=== PATIENT | male | born 1980 | race Caucasian/White ===

== ENCOUNTER 2021-12-04 09:33 | Emergency (ER) | payer OTHER, SELFPAY ==
[2021-12-04 09:38] VITALS: BMI 36.6
[2021-12-04 09:42] VITALS: BP 168/113; PULSE 94; RESP 14; TEMP 36.6; O2SAT 98
--- NOTE | 2021-12-04 09:45 | XRR_ITS ---
PROCEDURE INFORMATION: Exam: XR Chest Exam date and time: 12/04/2021 9:45 AM Age: 41 years old Clinical indication: Pain; Angina pectoris; Additional info: Cehst pain TECHNIQUE: Imaging protocol: XR of the chest. Views: 1 view. COMPARISON: MRI Shoulder w/wo LEFT [id number] 08/25/2015 1:27 PM FINDINGS: Lungs: Unremarkable. No consolidation. Pleural spaces: Unremarkable. No pleural effusion. No pneumothorax. Heart/Mediastinum: Unremarkable. No cardiomegaly. Bones/joints: Unremarkable. XR/XR chest 1V portable [id number] IMPRESSION: No acute findings.
--- NOTE | 2021-12-04 09:46 | ECG_ITS ---
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 Measurements Intervals [place] Rate: 87 P: 31 SC: 158 QRS: -55 QRSD: 102 T: 61 QT: 371 QTc: 449 Interpretive Statements SINUS RHYTHM LEFT ANTERIOR FASCICULAR BLOCK [QRS AXIS <= -45, QR IN I, RS IN II] No previous ECG available for comparison Electronically Signed On 12-05-2021 9:18:16 TEACHER PRIVATE by Laurie Canales M.D. [id number]
[2021-12-04 10:17] VITALS: BP 153/113; PULSE 90; RESP 18; O2SAT 95
[2021-12-04 10:18] LABS: Basophils % 0.6 %; Eosinophils # 0.1 10^3/uL (0.0-0.8); Eosinophils % 2.7 %; Hematocrit 47.4 % (42.0-52.0); Hemoglobin 16.7 g/dL (11.7-16.6); Lymphocytes # 1.9 10^3/uL (0.8-4.8); Lymphocytes % 38.5 %; Mean Corpuscular HGB Conc 35.2 g/dL (30.0-36.0); Mean Corpuscular Hemoglobin 31.5 pg (28.0-34.0); Mean Corpuscular Volume 89.3 fl (80-94); Mean Platelet Volume 9.2 fL (7.4-10.4); Monocytes # 0.8 10^3/uL (0.2-0.9); Monocytes % 16.7 %; Neutrophils # 1.98 10^3/uL (1.8-7.7); Neutrophils % 41.3 %; Nucleated Red Blood Cells % 0 %; Platelet Count 204 10^3/cmm (130-400); Red Blood Count 5.31 10^6/uL (4.1-5.3); Red Cell Distribution Width 11.5 % (12.1-15.1); White Blood Count 4.8 10^3/uL (4.0-10.0)
--- NOTE | 2021-12-04 10:23 | ED_ITS ---
HPI - Chest Pain General: Chief Complaint: Chest Pain Stated Complaint: Tightness in chest with pains Time Seen by Provider: 12/04/21 09:43 Source: patient Mode of arrival: ambulatory Limitations: no limitations History of Present Illness: 41-year-old male presents emergency room complaining of chest discomfort associated with shortness of breath and diaphoresis said intermittently for the last week the last couple of days has gotten progressively worse and episodes of been intensifying. Exacerbated by exertion and relieved by rest. He has no known history of any coronary artery disease not recently been ill has not had a productive cough fevers or chills. She denies any difficulty with speech swallowing vision or gait. Is known history of hypertension is on amlodipine he does not know if he is diabetic he does not have any known history of coronary disease but he is unaware of his father's health history. He has half-brothers who do not have any heart disease. MD complaint: chest pain Onset (ago): day(s) Timing of current episode: episodic Prior episodes: Yes Onset: during exertion Pain location: substernal Pain radiation: right arm, left arm and back Severity: mild Quality: tightness and heaviness Relieving factors: rest Exacerbating factors: exertion Associated symptoms: Deny abdominal pain, diaphoresis, dyspnea, fever(s), leg edema, nausea, palpitations, sense of impending doom, syncope or vomiting Treatment prior to arrival: none Risk Factors: Coronary artery disease risk factors: smoking history Review of Systems Const: Denies: fever(s) or diaphoresis ENMT: Denies: throat pain, ear or mastoid pain, nasal discharge or nasal congestion Card: Denies: palpitations or syncope Resp: Denies: dyspnea GI: Denies: abdominal pain, nausea or vomiting : Denies: flank pain, dysuria, urinary frequency or urinary urgency Skin/Breast: Denies: rash or pruritus PFS ED PFSH: Medical History Hypertension Obesity Social History Smoking and tobacco status: current every day smoker Alcohol intake: current Physical Exam Const: GENERAL APPEARANCE: cooperative and comfortable ORIENTATION/CONSCIOUSNESS: Yes awake, Yes oriented to person, Yes oriented to place and Yes oriented to time HENMT: COMMON NORMALS: normocephalic, atraumatic and hearing grossly normal bilaterally HEAD & SCALP: normocephalic and atraumatic Neck/C-Spine: COMMON NORMALS: no JVD Resp: COMMON NORMALS: normal respiratory effort, No retractions, No use of accessory muscles and clear to auscultation bilaterally AUSCULTATION: clear to auscultation bilaterally Cardio: COMMON NORMALS: no JVD, regular rate, regular rhythm and No murmurs present (Cardio) RATE: regular rate RHYTHM: regular rhythm GI: COMMON NORMALS: Soft to palpation and No hepatosplenomegaly present AUSCULTATION: Yes normoactive bowel sounds PALPATION: Yes Soft to palpation, No Tenderness to palpation present (GI), No Guarding due to palpation present (GI) and Yes No hepatosplenomegaly present Extremity: COMMON NORMALS: normal to inspection, capillary refill normal, no clubbing, cyanosis or edema, no calf tenderness and no pedal edema Neuro: SENSORIUM/ORIENTATION: Yes oriented to person, Yes oriented to place and Yes oriented to time Skin: COMMON NORMALS: no rashes or lesions noted GENERAL SKIN EXAM: no rashes or lesions noted Course Vital Signs: Vital signs: Vital Signs Temperature 97.9 F 12/04/21 09:42 Pulse Rate 77 12/04/21 13:54 Respiratory Rate 20 H 12/04/21 13:54 Blood Pressure 146/109 12/04/21 12:59 Pulse Oximetry 95 12/04/21 13:54 MDM - Chest Pain Medical Decision Making Cardiac enzymes EKG labs reviewed. No acute changes. We will go and discharge patient home. Getting him set up for an outpatient stress test were also going to start him on aspirin 81 mg daily and Toprol-XL 12.5 mg daily recheck if he has any worsening symptoms. Medical Records I reviewed the patient's medical records. Lab Data I reviewed the patient's lab results. : 12/04/21 10:05 12/04/21 10:05 Radiology Impressions Chest X-Ray 12/04/21 09:45 IMPRESSION: No acute findings. Laboratory Results WBC 4.8 10^3/uL (4.0-10.0) 12/04/21 10:05 RBC 5.31 10^6/uL (4.1-5.3) H 12/04/21 10:05 Hgb 16.7 g/dL (11.7-16.6) H 12/04/21 10:05 Hct 47.4 % (42.0-52.0) 12/04/21 10:05 MCV 89.3 fl (80-94) 12/04/21 10:05 MCH 31.5 pg (28.0-34.0) 12/04/21 10:05 MCHC 35.2 g/dL (30.0-36.0) 12/04/21 10:05 RDW 11.5 % (12.1-15.1) L 12/04/21 10:05 Plt Count 204 10^3/cmm (130-400) 12/04/21 10:05 MPV 9.2 fL (7.4-10.4) 12/04/21 10:05 Neut % (Auto) 41.3 % 12/04/21 10:05 Lymph % (Auto) 38.5 % 12/04/21 10:05 [place] % (Auto) 16.7 % 12/04/21 10:05 Eos % (Auto) 2.7 % 12/04/21 10:05 Baso % (Auto) 0.6 % 12/04/21 10:05 Neut # (Auto) 1.98 10^3/uL (1.8-7.7) 12/04/21 10:05 Lymph # (Auto) 1.9 10^3/uL (0.8-4.8) 12/04/21 10:05 [place] # (Auto) 0.8 10^3/uL (0.2-0.9) 12/04/21 10:05 Eos # (Auto) 0.1 10^3/uL (0.0-0.8) 12/04/21 10:05 Baso # (Auto) 0.0 10^3/uL (0.0-0.1) 12/04/21 10:05 Nucleated RBC % (auto) 0 % 12/04/21 10:05 Nucleated RBCs # 0.0 /100WBC 12/04/21 10:05 Sodium 137 mmol/L (136-145) 12/04/21 10:05 Potassium 3.5 mmol/L (3.5-5.1) 12/04/21 10:05 Chloride 99 mmol/L (98-107) 12/04/21 10:05 Carbon Dioxide 22 mmol/L (22-29) 12/04/21 10:05 Anion Gap 19.5 (5-19) H 12/04/21 10:05 BUN 9 mg/dL (6-20) 12/04/21 10:05 Creatinine 0.8 mg/dL (0.7-1.2) 12/04/21 10:05 GFR Calculation 106.0 mL/min (90-130) 12/04/21 10:05 Glucose 93 mg/dL (65-115) 12/04/21 10:05 Calculated Osmolality 282 mOsm/kg (285-295) L 12/04/21 10:05 Calcium 9.5 mg/dL (8.5-10.5) 12/04/21 10:05 Total Bilirubin 0.2 mg/dL (0.15-1.2) 12/04/21 10:05 AST 28 U/L (0-40) 12/04/21 10:05 ALT 38 U/L (0-41) 12/04/21 10:05 Alkaline Phosphatase 99 IU/L (40-130) 12/04/21 10:05 Troponin T Baseline 6 ng/L (0-15) 12/04/21 10:05 Troponin T 120 Minute 6.00 ng/L (0-15) 12/04/21 12:05 Delta Troponin T 0 ABS# (0-10) 12/04/21 12:05 Total Protein 7.8 g/dL (6.6-8.7) 12/04/21 10:05 Albumin 4.7 g/dL (3.5-5.2) 12/04/21 10:05 Globulin 3.1 g/dL (1.3-4.6) 12/04/21 10:05 Discharge Plan Discharge Patient Disposition: Home Clinical Impression: Hypertension, Atypical chest pain Condition: Stable Prescriptions: New aspirin 81 mg tablet,delayed release (DR/EC) 81 mg PO DAILY Qty: 30 0RF Toprol XL 25 mg tablet extended release 24 hr 12.5 mg PO DAILY Qty: 30 0RF Discharge Orders: Discharge ED (Routine); Ordered 12/04/21 Ordered By: Werner Sandoval Referrals: Lien Bernard FNP [Primary Care Provider] - Patient Instructions: Opioid Safety Activity Restrictions/Additional Instructions: Case management will call to make arrangements for you to have a an outpatient stress test. Started on metoprolol succinate COVID of milligrams once a day. Follow-up with your primary care doctor after stress test. Coding Level of Care Code ED Technician Test Systems for Portia Fwd Exam Comprehensive
[2021-12-04 10:35] LABS: Troponin(5th) Baseline 6 ng/L (0-15)
[2021-12-04 10:37] LABS: Alanine Aminotransferase 38 U/L (0-41); Albumin Level 4.7 g/dL (3.5-5.2); Alkaline Phosphatase 99 IU/L (40-130); Anion Gap 19.5 (5-19); Aspartate Amino Transferase 28 U/L (0-40); Blood Urea Nitrogen 9 mg/dL (6-20); Calcium 9.5 mg/dL (8.5-10.5); Carbon Dioxide 22 mmol/L (22-29); Chloride 99 mmol/L (98-107); Globulin 3.1 g/dL (1.3-4.6); Glucose 93 mg/dL (65-115); Osmolality Calculated 282 mOsm/kg (285-295); Potassium 3.5 mmol/L (3.5-5.1); Sodium 137 mmol/L (136-145); Total Bilirubin 0.2 mg/dL (0.15-1.2); Total Protein 7.8 g/dL (6.6-8.7)
[2021-12-04 11:45] VITALS: BP 130/95; PULSE 80; RESP 16; O2SAT 95
--- NOTE | 2021-12-04 11:46 | ECG_ITS ---
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 Measurements Intervals [place] Rate: 74 P: 20 MN: 166 QRS: -47 QRSD: 108 T: 67 QT: 415 QTc: 462 Interpretive Statements SINUS RHYTHM WITH SINUS ARRHYTHMIA LEFT ANTERIOR FASCICULAR BLOCK [QRS AXIS <= -45, QR IN I, RS IN II] NONSPECIFIC T-WAVE ABNORMALITY Compared to ECG 12/04/2021 09:45:15 T-wave abnormality now present Electronically Signed On 12-05-2021 14:49:27 CRUSHER PLANT OPERATOR by Laurie Canales M.D. [id number]
[2021-12-04 12:07] VITALS: BP 135/99; PULSE 84; RESP 20; O2SAT 96
[2021-12-04 12:59] VITALS: BP 146/109; PULSE 76; RESP 16; O2SAT 95
[2021-12-04 13:24] LABS: Troponin 5 2HR Delta 0 ABS# (0-10)
[2021-12-04 13:54] VITALS: PULSE 77; RESP 20; O2SAT 95
--- NOTE | 2021-12-06 14:48 | DCPLANNER ---
Addendum entered by Michelle Rhodes 02/27/22 20:39: Patient had an outpatient stress test scheduled for 01.21.22 - appointment was rescheduled. Addendum entered by Michelle Rhodes 01/18/22 07:51: Patient has an out patient stress test scheduled for Friday, January 21, 2022 at 11:30. Centralized scheduling will call patient with appointment information. Original Note: event planning manager had message to schedule an outpatient stress test for patient. event planning manager faxed signed order to centralized scheduling, who will call patient with appointment information.
== END 2021-12-04 13:57 | disposition home or self-care (01) ==
PROVIDERS: Emergency Provider Family Medicine; PCP Nurse Practitioner Family
DX: R07.89 Other chest pain (principal); I10 Essential (primary) hypertension; F17.210 Nicotine dependence, cigarettes, uncomplicated
CPT/HCPCS: 71045; 80053; 84484; 85025; 93005; 99283

== ENCOUNTER 2024-08-18 07:47 | Day surgery (SDC) | payer OTHER, SELFPAY ==
[2024-08-18] VITALS (17 sets, daily range): BP systolic 110–151; BP diastolic 65–98; PULSE 62–95; RESP 15–20; TEMP 36.3–36.7; O2SAT 90–99; BMI 32.3
[2024-08-18] MEDS: sodium chloride 0.9% 1,000 ML 30 ML IV (08:39)
--- NOTE | 2024-08-18 08:54 | ANES.PREANE2 ---
Pre-Anesthetic Assessment Height/Weight: Height 5 ft 10 in Weight 225 lb Temp Pulse Resp BP Pulse Ox O2 Del Method 97.8 F 87 16 151/98 96 Room Air 08/18/24 08:11 08/18/24 08:11 08/18/24 08:11 08/18/24 08:11 08/18/24 08:11 08/18/24 08:11 Preop Diagnosis: Cholelithiasis Operation Date: 08/18/24 09:20 Proposed Procedures p Laparoscopic Cholecystectomy 47752, K80.20(Not Applicable) - Iam Arvizu MD Was Beta Ruslan taken within 24 hours: N/A Was Clonidine taken within 24 hours: N/A Last intake: Intake Last Liquid Date 08/17/24 Last Liquid Time 21:00 Last Solid Date 08/17/24 Last Solid Time 20:30 Social Tobacco and No alcohol Exam alert, oriented x 3, clear to auscultation bilaterally and regular rate & rhythm Airway Submandibular: within normal limits Cervical ROM: within normal limits Mallampati: Class I Dentition: full Anesthetic Plan ASA status: 2 Anesthesia: General Other: No prior issues with anesthesia NPO since yesterday evening History of GERD on omeprazole and famotidine Hypertension on amlodipine Prior EKG showing sinus rhythm with left anterior fascicular block METs greater than 4 Plan for GETA Medications/Allergies Home Medications Medication Instructions Recorded Confirmed Last Taken Type amlodipine 10 mg tablet 10 mg PO DAILY 08/10/24 08/17/24 08/18/24 History famotidine 20 mg tablet 20 mg PO DAILY 08/10/24 08/17/24 08/18/24 History fluticasone propionate 50 2 spray intranasal DAILY 08/10/24 08/17/24 08/18/24 History mcg/actuation nasal spray,suspension omeprazole 40 mg capsule,delayed 40 mg PO DAILY 08/10/24 08/17/24 08/18/24 History release cetirizine 10 mg tablet (Zyrtec) 10 mg PO DAILY 08/17/24 08/17/24 08/18/24 History Allergies Allergy/AdvReac Type Severity Reaction Status Date / Time No Known Allergies Allergy Verified 08/17/24 11:46 Current Medications Generic Name Dose Route Start Last Admin Trade Name Freq PRN Reason Stop Dose Admin Sodium Chloride 1,000 mls @ 30 mls/hr 08/18/24 08:15 08/18/24 08:39 Sodium Chloride 0.9% IV 08/19/24 08:14 30 mls/hr .Q24H RAMAKRISHNA Administration PFSH Anesthesia Medical History Hypertension Obesity Family History (Updated 08/10/24 @ 09:06 by MARIA M Espinosa) Mother Hypertension Social History Smoking and tobacco/nicotine status: current every day tobacco/nicotine user (chews tobacco on occasion) cigarettes [ Other cigarette details: chews tobacco PRN] Alcohol intake: current Alcohol intake frequency: few times a week Data Anesthesia Cardiac Studies: No Data to Display
--- NOTE | 2024-08-18 10:03 | W.PM.OPSUD ---
Surgery/Procedure H&P Update DATE OF PROCEDURE: August 18, 2024 DATE H&P PERFORMED: 08/10/24 H&P UPDATE INFORMATION: I have reviewed H&P completed within last 30 days, I have examined patient prior to procedure and No changes to prior documentation PREOP DIAGNOSIS: Cholelithiasis PLANNED PROCEDURE: Operation Date: 08/18/24 09:20 Proposed Procedures p Laparoscopic Cholecystectomy 20176, K80.20(Not Applicable) - Iam Arvizu MD
[2024-08-18] MEDS: ceFAZolin 2,000 mg SDV 2000 MG IVP (10:16)
[2024-08-18] MEDS: lidocaine-epi 1% 20 mL INJ INJECTION (10:42)
[2024-08-18] MEDS: BUPivacaine 0.25% INJ 10 mL INJECTION (10:43)
--- NOTE | 2024-08-18 11:45 | P.OP_ITS ---
Operative Report Date of procedure: August 18, 2024 Pre-op diagnosis: Cholelithiasis Post-op diagnosis: same Post-op findings: Gallbladder with stones Procedure done: Laparoscopic cholecystectomy Implants: NA Specimens removed/disposition: Gallbladder Pathology: Gallbladder sent to pathology Surgeon: Iam Arvizu MD Geophysical Observer: SENTHIL Anesthesia: General Estimated blood loss (mL): 20 Complications: NA Findings: Gallbladder with stones Condition: stable Disposition: same day (home) Brief History: 44 yo male who presented with symptomatic cholelithiasis. Discussed risks and benefits of laparocopic cholecystectomy, possible open and patient agreed to proceed. Procedure: I discussed the risks and benefits of laparoscopic cholecystectomy, and obtained consent prior to proceeding to the operating room. SCDs were utilized. Prophylactic antibiotics were administered. General anesthesia was induced. The patient was placed supine, and he was prepped and draped in the usual sterile fashion. Insufflation to 15mmHg was achieved using a Veress needle at Martinez's point. A 5mm optiview trocar was placed at the umbilicus under direct visualization. The left upper quadrant was inspected, and no injuries were noted. Two 5mm ports were placed in the right upper quadrant, and a 11mm working port was placed in the epigastrium. The gallbladder was then retracted cephalad through the lateral RUQ port, and the infundibulum grabbed through the medial RUQ port and retracted laterally. The gallbladder was inflammed and thus consistent with her diagnosis of cholecystitis. I proceeded to score the peritoneum over the medial aspect of the gallbladder using a laparoscopic hook with electrocautery. Then the infundibulum was retracted medially in order to score the peritoneum over the lateral aspect of the galbladder. Using a com bination of energy and blunt dissection with the [place] and a Kittner dissector, the cystic artery and cystic duct were dissected. I then proceeded to dissect the cystic plate in order to to achieve the critical view of safety. The cystic artery and the cystic duct were clipped three times (leaving two clips on the proximal end of both structures). I then proceeded to dissect the gallbladder off the liver using hook electrocautery. The specimen was placed in an endocatch bag and retrieved from the abdomen through the port on the epigastrium. I then irrigated the gallbladder fossa with 3L of NS to confirm adequate hemostasis and the absence of any bile leaks. The gallbladder fossa was then cauterized again and arixtra powder was applied. The gallbladder was sent to pathology. Prior to ending the laparoscopic portion, I examined the rest of the abdomen and did not find any abnormalities or injuries. The abdomen was then desufflated. Skin was closed using 4-0 monocryl and surgical glue. The patient woke up from anesthesia and transferred to PACU without any complications.
[2024-08-18] MEDS: fentaNYL 50 mcg/mL INJ 2mL IVP ×2 (12:14→12:27)
[2024-08-18] MEDS: ipratropium-albuterol 3 mL Neb INHALATION (12:49)
[2024-08-18] MEDS: oxyCODONE 5 mg IR Tab/Cap PO (13:31)
--- NOTE | 2024-08-18 14:00 | ANE.PACU2 ---
Inpatient post-anesthesia follow up: Airway intact: Yes Vital signs: Temperature 98.0 F Pulse Rate 83 Respiratory Rate 16 Blood Pressure 125/77 Pulse Oximetry 94 Oxygen Delivery Me thod Room Air Oxygen Flow Rate 2 Fraction of Inspir ed Oxygen Hydration adequate: Yes Nausea and vomiting: No Pain level: 1 Mental status: Baseline
== END 2024-08-18 14:00 | disposition home or self-care (01) ==
PROVIDERS: PCP Internal Medicine; Visit Provider Student in an Organized Health Care Education/Training Program
PROC: 0FT44ZZ Resection of Gallbladder, Percutaneous Endoscopic Approach (ICD-10-PCS; CPT 47562; principal; 2024-08-18 09:10)
DX: K80.10 Calculus of gallbladder with chronic cholecystitis without obstruction (principal); K21.9 Gastro-esophageal reflux disease without esophagitis; I10 Essential (primary) hypertension; E66.9 Obesity, unspecified; Z68.32 Body mass index [BMI] 32.0-32.9, adult; F17.210 Nicotine dependence, cigarettes, uncomplicated; F17.220 Nicotine dependence, chewing tobacco, uncomplicated
CPT/HCPCS: 47562; 88304; A7003; J0690; J1100; J1885; J2405; J2704; J2710; J3010; J3490; J7030

== ENCOUNTER 2024-08-18 20:04 | Observation (INO) | payer OTHER, SELFPAY ==
[2024-08-18] VITALS (9 sets, daily range): BP systolic 81–138; BP diastolic 53–96; PULSE 80–115; RESP 15–22; TEMP 34.7; O2SAT 90–98; BMI 32.3
--- NOTE | 2024-08-18 20:17 | ECG_ITS ---
[facility] Date: 2024-[facility]18 Pat Name: Alan Kang Department: Room: Gender: Male Stain Wiper: : 1980 Requested By: Jude Lawson Order Number: [id number] Gonzales MD: Sandoval Fuentes M.D. Measurements Intervals [place] Rate: 95 P: 49 NE: 149 QRS: -43 QRSD: 91 T: 41 QT: 380 QTc: 479 Interpretive Statements SINUS RHYTHM LEFT AXIS DEVIATION [QRS AXIS < -30] PATTERN CONSISTENT WITH PULMONARY DISEASE Compared to ECG 12/04/2021 11:53:18 Left-axis deviation now present Sinus arrhythmia no longer present Electronically Signed On 08-19-2024 12:11:54 CDT by Sandoval Fuentes M.D. [id number]
--- NOTE | 2024-08-18 20:18 | ED_ITS ---
Documented by User: Jude Lawson DO 08/18/24 21:04 HPI - Abdominal Pain 2 General: Chief Complaint: Abdominal Pain Stated Complaint: Pain, abd Distention, Cholecystectomy today Time Seen by Provider: 08/18/24 20:13 History of Present Illness: Patient presents to the ER via EMS with complaints of dizziness abdominal pain and passing out. Patient had a cholecystectomy today around noon and was discharged around 245, Dr. Arvizu performed the surgery. Patient took an oxycodone around 1530. Patient said he was passing gas and got up to have a bowel movement and felt lightheaded and dizzy they sat down on the toilet and passed out when he awoke he had defecated and urinated on himself. Patient says bowel movement was normal with no dark tarry stools or lexi blood. Patient has taken oxycodone before but never had a reaction like this. Related Data Home Medications Medication Instructions Recorded Confirmed amlodipine 10 mg tablet 10 mg PO DAILY 08/10/24 08/17/24 famotidine 20 mg tablet 20 mg PO DAILY 08/10/24 08/17/24 fluticasone propionate 50 2 spray intranasal DAILY 08/10/24 08/17/24 mcg/actuation nasal spray,suspension omeprazole 40 mg capsule,delayed 40 mg PO DAILY 08/10/24 08/17/24 release cetirizine 10 mg tablet (Zyrtec) 10 mg PO DAILY 08/17/24 08/17/24 Previous Rx's Medication Instructions Recorded oxycodone 5 mg tablet 5 mg PO Q6H PRN pain 5 days #10 08/18/24 tabs Allergies Allergy/AdvReac Type Severity Reaction Status Date / Time No Known Allergies Allergy Verified 08/17/24 11:46 Review of Systems 2 General: Reports: 10 or more systems reviewed and unremarkable except in HPI and below PFSH ED 2 PFSH: Medical History Hypertension Obesity Family History Mother Hypertension Social History Smoking and tobacco/nicotine status: current every day tobacco/nicotine user (chews tobacco on occasion) cigarettes [ Other cigarette details: chews tobacco PRN] Alcohol intake: current Alcohol intake frequency: few times a week Physical Exam 2 Const: COMMON NORMALS: no acute distress, average body habitus, patient oriented x3, no limitations, healthy appearing, alert and well nourished HENMT: COMMON NORMALS: normocephalic, atraumatic, hearing grossly normal bilaterally, external ears normal, Normal external nose present and moist oral mucous membranes HEAD & SCALP: normocephalic and atraumatic NOSE: Normal external nose present EXTERNAL EAR: Yes external ears normal Neck/C-Spine: COMMON NORMALS: no JVD Chest: COMMONS NORMALS: normal inspection of the chest and normal palpation of entire chest wall Resp: COMMON NORMALS: normal respiratory effort, No retractions, No use of accessory muscles and clear to auscultation bilaterally AUSCULTATION: clear to auscultation bilaterally Cardio: COMMON NORMALS: no JVD, regular rate, regular rhythm, S1 normal heart sound present, S2 normal heart sound present, No gallops present (Cardio), No clicks present (Cardio), No murmurs present (Cardio) and No rub (Cardio) R ATE: regular rate RHYTHM: regular rhythm HEART SOUNDS: S1 normal heart sound present and S2 normal heart sound present GI: COMMON NORMALS: Soft to palpation, No hepatosplenomegaly present and no masses; negative for non-tender (Diffusely tender right upper quadrant consistent postsurgery,) PALPATION: Yes Soft to palpation and Yes No hepatosplenomegaly present Neuro: COMMON NORMALS: patient oriented x3 SENSORIUM/ORIENTATION: Yes alert Course 2 Vital Signs: Vital signs: Vital Signs Temperature 94.5 F L 08/18/24 20:04 Pulse Rate 115 H 08/18/24 21:30 Respiratory Rate 20 H 08/18/24 20:04 Blood Pressure 122/96 08/18/24 21:30 Pulse Oximetry 96 08/18/24 21:30 Oxygen Delivery Me thod Room Air 08/18/24 20:04 MDM - Abdominal Pain Medical Records I reviewed the patient's medical records. Lab Data I reviewed the patient's lab results. 08/18/24 20:19 08/18/24 20:19 Labs/Radiology: Radiology Impressions Abdomen/Pelvis CT 08/18/24 21:03 IMPRESSION: 1. Moderate free air in the abdomen may be related to recent history of cholecystectomy. Please correlate clinically 2. Moderate fluid seen about the liver and spleen which appears somewhat hyperdense around the spleen and inferior to the liver suggestive of blood products, perhaps related to recent surgery, negative for contrast extravasation seen to indicate active bleeding. A biliary leak may also be a consideration, nuclear medicine HIDA scan could further evaluate for this. 3. Bibasilar atelectasis. 4. Small umbilical hernia containing omentum with a small amount of air in the umbilical region may be related to history of surgery. Chest X-Ray 08/18/24 21:04 IMPRESSION: No acute findings. Laboratory Results WBC 16.63 10^3/uL (3.29-11.43) H 08/18/24 20:19 RBC 3.65 10^6/uL (3.85-5.65) L 08/18/24 20:19 Hgb 11.00 g/dL (11.27-16.99) L 08/18/24 20:19 Hct 33.6 % (37-53) L 08/18/24 20:19 MCV 92.1 fl (82-101) 08/18/24 20:19 MCH 30.1 pg (27-33) 08/18/24 20:19 MCHC 32.7 g/dL (30-55) 08/18/24 20:19 RDW 12.7 % (12.1-15.1) 08/18/24 20:19 Plt Count 387 10^3/cmm (157-399) 08/18/24 20:19 MPV 8.9 fL (7.4-10.4) 08/18/24 20:19 Neut % (Auto) 90.4 % 08/18/24 20:19 Lymph % (Auto) 5.7 % 08/18/24 20:19 Mobile % (Auto) 3.1 % 08/18/24 20:19 Eos % (Auto) 0.0 % 08/18/24 20:19 Baso % (Auto) 0.1 % 08/18/24 20:19 Neut # (Auto) 15.05 10^3/uL (1.8-7.7) H 08/18/24 20:19 Lymph # (Auto) 0.9 10^3/uL (0.8-4.8) 08/18/24 20:19 Mobile # (Auto) 0.5 10^3/uL (0.2-0.9) 08/18/24 20:19 Eos # (Auto) 0.0 10^3/uL (0.0-0.8) 08/18/24 20:19 Baso # (Auto) 0.0 10^3/uL (0.0-0.1) 08/18/24 20:19 Nucleated RBC % (auto) 0 % 08/18/24 20:19 Nucleated RBCs # 0.0 /100WBC 08/18/24 20:19 Sodium 134 mmol/L (136-145) L 08/18/24 20:19 Potassium 4.5 mmol/L (3.5-5.1) 08/18/24 20:19 Chloride 98 mmol/L (98-107) 08/18/24 20:19 Carbon Dioxide 18 mmol/L (22-29) L 08/18/24 20:19 Anion Gap 22.5 (5-19) H 08/18/24 20:19 BUN 17 mg/dL (6-20) 08/18/24 20:19 Creatinine 1.4 mg/dL (0.7-1.2) H 08/18/24 20:19 GFR Calculation 54.8 mL/min (90-130) L 08/18/24 20:19 Glucose 314 mg/dL (65-115) H 08/18/24 20:19 Calculated Osmolality 292 mOsm/kg (285-295) 08/18/24 20:19 Lactic Acid 7.9 mmol/L (0.5-2.2) H* 08/18/24 20:19 Calcium 7.8 mg/dL (8.5-10.5) L 08/18/24 20:19 Total Bilirubin 0.3 mg/dL (0.15-1.2) 08/18/24 20:19 AST 24 U/L (0-40) 08/18/24 20:19 ALT 25 U/L (0-41) 08/18/24 20:19 Alkaline Phosphatase 63 U/L (40-130) 08/18/24 20:19 Total Protein 5.9 g/dL (6.6-8.7) L 08/18/24 20:19 Albumin 3.7 g/dL (3.5-5.2) 08/18/24 20:19 Globulin 2.2 g/dL (1.3-4.6) 08/18/24 20:19 All radiology interpretation(s) finalized by discharge Discharge Plan Discharge Patient Disposition: Placed in Observation Clinical Impression: Near syncope, Post-op pain Coding Level of Care Code ED Study Manager for Chg Fwd Documented by User: Roxane Brown MD 08/18/24 21:51 HPI - Abdominal Pain 2 General: Chief Complaint: Abdominal Pain Stated Complaint: Pain, abd Distention, Cholecystectomy today Time Seen by Provider: 08/18/24 20:13 Related Data Home Medications Medication Instructions Recorded Confirmed amlodipine 10 mg tablet 10 mg PO DAILY 08/10/24 08/17/24 famotidine 20 mg tablet 20 mg PO DAILY 08/10/24 08/17/24 fluticasone propionate 50 2 spray intranasal DAILY 08/10/24 08/17/24 mcg/actuation nasal spray,suspension omeprazole 40 mg capsule,delayed 40 mg PO DAILY 08/10/24 08/17/24 release cetirizine 10 mg tablet (Zyrtec) 10 mg PO DAILY 08/17/24 08/17/24 Previous Rx's Medication Instructions Recorded oxycodone 5 mg tablet 5 mg PO Q6H PRN pain 5 days #10 08/18/24 tabs Allergies Allergy/AdvReac Type Severity Reaction Status Date / Time No Known Allergies Allergy Verified 08/17/24 11:46 PFSH ED 2 PFSH: Medical History Hypertension Obesity Family History Mother Hypertension Social History Smoking and tobacco/nicotine status: current every day tobacco/nicotine user (chews tobacco on occasion) cigarettes [ Other cigarette details: chews tobacco PRN] Alcohol intake: current Alcohol intake frequency: few times a week Course 2 Vital Signs: Vital signs: Vital Signs Temperature 94.5 F L 08/18/24 20:04 Pulse Rate 115 H 08/18/24 21:30 Respiratory Rate 20 H 08/18/24 20:04 Blood Pressure 122/96 08/18/24 21:30 Pulse Oximetry 96 08/18/24 21:30 Oxygen Delivery Ga thod Room Air 08/18/24 20:04 MDM - Abdominal Pain Medical Decision Making \ Patient care was transitioned to nh at shift change awaiting CT results. Consultation: Dr. Cintron saw the patient emergency room and reviewed films. Recommends observation to the intensive care unit overnight. CT of the abdomen pelvis with contrast: Moderate free air and moderate fluid that may be mixed with blood. No extravasation that would indicate active bleeding. Atelectasis. This was reviewed and interpreted by myself the emergency room physician. I also reviewed the radiology report. Assessment and plan: Near syncope Hypotension Postop complication - Discussed findings and plan with patient. Answered any questions. - All laboratory values were reviewed and interpreted personally by myself, the ER physician - All imaging was reviewed and interpreted personally by myself, the ER physician. - Evaluation and treatment of this problem were appropriate in the emergency setting Lab Data 08/18/24 20:19 08/18/24 20:19 Labs/Radiology: Radiology Impressions Abdomen/Pelvis CT 08/18/24 21:03 IMPRESSION: 1. Moderate free air in the abdomen may be related to recent history of cholecystectomy. Please correlate clinically 2. Moderate fluid seen about the liver and spleen which appears somewhat hyperdense around the spleen and inferior to the liver suggestive of blood products, perhaps related to recent surgery, negative for contrast extravasation seen to indicate active bleeding. A biliary leak may also be a consideration, nuclear medicine HIDA scan could further evaluate for this. 3. Bibasilar atelectasis. 4. Small umbilical hernia containing omentum with a small amount of air in the umbilical region may be related to history of surgery. Chest X-Ray 08/18/24 21:04 IMPRESSION: No acute findings. Laboratory Results WBC 16.63 10^3/uL (3.29-11.43) H 08/18/24 20:19 RBC 3.65 10^6/uL (3.85-5.65) L 08/18/24 20:19 Hgb 11.00 g/dL (11.27-16.99) L 08/18/24 20:19 Hct 33.6 % (37-53) L 08/18/24 20:19 MCV 92.1 fl (82-101) 08/18/24 20:19 MCH 30.1 pg (27-33) 08/18/24 20:19 MCHC 32.7 g/dL (30-55) 08/18/24 20:19 RDW 12.7 % (12.1-15.1) 08/18/24 20:19 Plt Count 387 10^3/cmm (157-399) 08/18/24 20:19 MPV 8.9 fL (7.4-10.4) 08/18/24 20:19 Neut % (Auto) 90.4 % 08/18/24 20:19 Lymph % (Auto) 5.7 % 08/18/24 20:19 Mobile % (Auto) 3.1 % 08/18/24 20:19 Eos % (Auto) 0.0 % 08/18/24 20:19 Baso % (Auto) 0.1 % 08/18/24 20:19 Neut # (Auto) 15.05 10^3/uL (1.8-7.7) H 08/18/24 20:19 Lymph # (Auto) 0.9 10^3/uL (0.8-4.8) 08/18/24 20:19 Mobile # (Auto) 0.5 10^3/uL (0.2-0.9) 08/18/24 20:19 Eos # (Auto) 0.0 10^3/uL (0.0-0.8) 08/18/24 20:19 Baso # (Auto) 0.0 10^3/uL (0.0-0.1) 08/18/24 20:19 Nucleated RBC % (auto) 0 % 08/18/24 20:19 Nucleated RBCs # 0.0 /100WBC 08/18/24 20:19 Sodium 134 mmol/L (136-145) L 08/18/24 20:19 Potassium 4.5 mmol/L (3.5-5.1) 08/18/24 20:19 Chloride 98 mmol/L (98-107) 08/18/24 20:19 Carbon Dioxide 18 mmol/L (22-29) L 08/18/24 20:19 Anion Gap 22.5 (5-19) H 08/18/24 20:19 BUN 17 mg/dL (6-20) 08/18/24 20:19 Creatinine 1.4 mg/dL (0.7-1.2) H 08/18/24 20:19 GFR Calculation 54.8 mL/min (90-130) L 08/18/24 20:19 Glucose 314 mg/dL (65-115) H 08/18/24 20:19 Calculated Osmolality 292 mOsm/kg (285-295) 08/18/24 20:19 Lactic Acid 7.9 mmol/L (0.5-2.2) H* 08/18/24 20:19 Calcium 7.8 mg/dL (8.5-10.5) L 08/18/24 20:19 Total Bilirubin 0.3 mg/dL (0.15-1.2) 08/18/24 20:19 AST 24 U/L (0-40) 08/18/24 20:19 ALT 25 U/L (0-41) 08/18/24 20:19 Alkaline Phosphatase 63 U/L (40-130) 08/18/24 20:19 Total Protein 5.9 g/dL (6.6-8.7) L 08/18/24 20:19 Albumin 3.7 g/dL (3.5-5.2) 08/18/24 20:19 Globulin 2.2 g/dL (1.3-4.6) 08/18/24 20:19 Discharge Plan Discharge Patient Disposition: Placed in Observation Clinical Impression: Near syncope, Post-op pain Coding Level of Care Code ED Study Manager for Portia Rivera
[2024-08-18] MEDS: sodium chloride 0.9% 1,000 ML 999 ML IV (20:25)
[2024-08-18 20:35] LABS: Basophils % 0.1 %; Hematocrit 33.6 % (37-53); Lymphocytes # 0.9 10^3/uL (0.8-4.8); Lymphocytes % 5.7 %; Mean Corpuscular HGB Conc 32.7 g/dL (30-55); Mean Corpuscular Hemoglobin 30.1 pg (27-33); Mean Corpuscular Volume 92.1 fl (82-101); Mean Platelet Volume 8.9 fL (7.4-10.4); Monocytes # 0.5 10^3/uL (0.2-0.9); Monocytes % 3.1 %; Neutrophils # 15.05 10^3/uL (1.8-7.7); Neutrophils % 90.4 %; Nucleated Red Blood Cells % 0 %; Platelet Count 387 10^3/cmm (157-399); Red Blood Count 3.65 10^6/uL (3.85-5.65); Red Cell Distribution Width 12.7 % (12.1-15.1); White Blood Count 16.63 10^3/uL (3.29-11.43)
[2024-08-18 20:54] LABS: Albumin Level 3.7 g/dL (3.5-5.2); Alkaline Phosphatase 63 U/L (40-130); Anion Gap 22.5 (5-19); Aspartate Amino Transferase 24 U/L (0-40); Blood Urea Nitrogen 17 mg/dL (6-20); Calcium 7.8 mg/dL (8.5-10.5); Carbon Dioxide 18 mmol/L (22-29); Chloride 98 mmol/L (98-107); Globulin 2.2 g/dL (1.3-4.6); Glomerular Filtration Rate 54.8 mL/min (90-130); Glucose 314 mg/dL (65-115); Osmolality Calculated 292 mOsm/kg (285-295); Potassium 4.5 mmol/L (3.5-5.1); Sodium 134 mmol/L (136-145); Total Bilirubin 0.3 mg/dL (0.15-1.2); Total Protein 5.9 g/dL (6.6-8.7)
[2024-08-18 20:57] LABS: Lactic Sepsis W/Reflex 7.9 mmol/L (0.5-2.2)
--- NOTE | 2024-08-18 21:03 | CTR_ITS ---
PROCEDURE INFORMATION: Exam: CT Abdomen And Pelvis With Contrast Exam date and time: 08/18/2024 9:22 PM Age: 44 years old Clinical indication: Abdominal pain; Prior surgery; Surgery date: Post-operative (0-2 days); Surgery type: Lap choly done today; Additional info: Lap choly today, leukocytosis, abd pain, elevated lactic aci TECHNIQUE: Imaging protocol: Computed tomography of the abdomen and pelvis with contrast. Radiation optimization: All CT scans at this facility use at least one of these dose optimization techniques: automated exposure control; mA and/or kV adjustment per patient size (includes targeted exams where dose is matched to clinical indication); or iterative reconstruction. Contrast material: OMNI 350; Contrast volume: 100 ml; Contrast route: INTRAVENOUS (IV); COMPARISON: [place] [id number] 07/08/2024 8:59 AM RADIATION DOSE METRICS: Total DLP (mGy-cm): 1003.83 FINDINGS: Lungs: Bibasilar atelectasis. Liver: Moderate fluid seen about the liver and spleen which appears somewhat hyperdense around the spleen and inferior to the liver suggestive of blood products, perhaps related to recent surgery, negative for contrast extravasation seen to indicate active bleeding. A biliary leak may also be a consideration, nuclear medicine HIDA scan could further evaluate for this. Gallbladder and biliary ducts: See Intraperitoneal space finding. Pancreas: Normal. No ductal dilation. Spleen: See Liver finding. Adrenal glands: Normal. No mass. Kidneys and ureters: Normal. No hydronephrosis. Stomach and bowel: Unremarkable. No obstruction. No mucosal thickening. Appendix: No evidence of appendicitis. Intraperitoneal space: Moderate free air in the abdomen may be related to recent history of cholecystectomy. Vasculature: Unremarkable. No abdominal aortic aneurysm. Lymph nodes: Unremarkable. No enlarged lymph nodes. Urinary bladder: Unremarkable as visualized. Reproductive: Unremarkable as visualized. Bones/joints: Chronic bilateral L5 pars interarticularis defects. Soft tissues: Small umbilical hernia containing omentum with a small amount of air in the umbilical region may be related to history of surgery. CT/CT abdomen pelvis w con* [id number] IMPRESSION: 1. Moderate free air in the abdomen may be related to recent history of cholecystectomy. Please correlate clinically 2. Moderate fluid seen about the liver and spleen which appears somewhat hyperdense around the spleen and inferior to the liver suggestive of blood products, perhaps related to recent surgery, negative for contrast extravasation seen to indicate active bleeding. A biliary leak may also be a consideration, nuclear medicine HIDA scan could further evaluate for this. 3. Bibasilar atelectasis. 4. Small umbilical hernia containing omentum with a small amount of air in the umbilical region may be related to history of surgery.
--- NOTE | 2024-08-18 21:04 | XRR_ITS ---
PROCEDURE INFORMATION: Exam: XR Chest Exam date and time: 08/18/2024 9:17 PM Age: 44 years old Clinical indication: Other: Poss septic; Prior surgery; Surgery date: Post-operative (0-2 days); Surgery type: Just had choley today, CT to follow; Additional info: Possible sepsis TECHNIQUE: Imaging protocol: Radiologic exam of the chest. Views: 1 view. COMPARISON: CR XR chest 1V portable [id number] 12/04/2021 10:01 AM FINDINGS: Lungs: Unremarkable. No consolidation. Pleural spaces: Unremarkable. No pleural effusion. No pneumothorax. Heart/Mediastinum: Unremarkable. No cardiomegaly. Bones/joints: Unremarkable. XR/XR chest 1V portable [id number] IMPRESSION: No acute findings.
[2024-08-18 21:12] LABS: Alanine Aminotransferase 25 U/L (0-41)
[2024-08-18] MEDS: iohexol 350 mg/mL 500 mL Btl (per mL) IV (21:28)
--- NOTE | 2024-08-18 22:14 | P.HP_ITS ---
Providers/Chief Complaint 2 Primary Care Provider: Joss Ackerman DO Chief Complaint: Pain, abd Distention, Cholecystectomy today History of Present Illness Alan Kang is a 44 year old male who is status post laparoscopic cholecystectomy by my colleague Dr. Arvizu. This was done this morning, patient went home and was feeling fine until later in the afternoon requiring he started to have abdominal pain, he took his pain medication after which he feel lightheaded and fainted. He presented to the emergency department after this. In the emergency department he was noted to be tachycardic and mildly hypotensive. He is complaining was dizziness and mild abdominal pain. Laboratory workup showed a white count of 16, normal LFTs, elevated creatinine at 1.4 and an elevated lactic acid level at 7. A CT scan of the abdomen and pelvis was obtained showing evidence of residual pneumoperitoneum, free intra- abdominal fluid around the liver and spleen. No active contrast extravasation. Review of Systems 2 General: Reports: 10 or more systems reviewed and unremarkable except in HPI and below Medications/Allergies Home Medications Medication Instructions Recorded Confirmed Last Taken Type amlodipine 10 mg tablet 10 mg PO DAILY 08/10/24 08/17/24 08/18/24 History famotidine 20 mg tablet 20 mg PO DAILY 08/10/24 08/17/24 08/18/24 History fluticasone propionate 50 2 spray intranasal DAILY 08/10/24 08/17/24 08/18/24 History mcg/actuation nasal spray,suspension omeprazole 40 mg capsule,delayed 40 mg PO DAILY 08/10/24 08/17/24 08/18/24 History release cetirizine 10 mg tablet (Zyrtec) 10 mg PO DAILY 08/17/24 08/17/24 08/18/24 History oxycodone 5 mg tablet 5 mg PO Q6H PRN pain 5 days #10 08/18/24 Unknown Rx tabs Allergies Allergy/AdvReac Type Severity Reaction Status Date / Time No Known Allergies Allergy Verified 08/17/24 11:46 PFSH Acute 2 PFSH: Medical History Hypertension Obesity Family History Mother Hypertension Social History Smoking and tobacco/nicotine status: current every day tobacco/nicotine user (chews tobacco on occasion) cigarettes [ Other cigarette details: chews tobacco PRN] Alcohol intake: current Alcohol intake frequency: few times a week Vitals/I&O/Wt Last Vital Signs Temp 94.5 F L 08/18/24 20:04 Pulse 115 H 08/18/24 21:30 Resp 20 H 08/18/24 20:04 BP 122/96 08/18/24 21:30 Pulse Ox 96 08/18/24 21:30 O2 Del Method Room Air 08/18/24 20:04 Weight last 48 hrs Weight 225 lb Physical Exam 2 Narrative: General : Patient is well developed , no acute distress, oriented x3 Head : Normal cephalic, a-traumatic. Nose : Mucous membranes are without erythema. Lungs : Equal chest rise bilaterally, no use of accessory muscles, trachea is midline. CV : Rate and rhythm are normal. Abdomen : Soft, appropriately tender, surgical incisions covered with Dermabond, minimally distended. Extremities : No edema. Upper extremities are normal bilaterally. Back : non-tender to palpation, no CVA tenderness. Data 08/18/24 20:19 08/18/24 20:19 A&P Assessment and plan (1) Hx laparoscopic cholecystectomy: (2) Near syncope: Plan After complete history, physical examination and review of all available clinical data the following is my assessment. Patient who presents with dizziness on 519 in the setting of recent laparoscopic cholecystectomy. Laboratory workup shows evidence of an elevated white count, normal LFTs, elevated creatinine and elevated lactate level. CT shows evidence of some free fluid around the liver and the spleen that is somehow hyperdense but no evidence of active extravasation. I discussed the case with my colleague Dr. Arvizu as he was the primary surgeon for this patient. After evaluation of all the clinical data available we have concluded that the best course of action for this patient is to stay in the hospital for overnight observation and hydration, patient's symptoms may be due to dehydration in combination with the opiate medication that he used for pain control. We will continue to trend hemoglobin and laboratory workup to ensure that there is not a significant downtrend. We will obtain a repeat lactate level to ensure resuscitation is effective. While the CT scan read from radiology indicates the possibility of either some intra- abdominal bleeding versus a bile leak, this is unlikely at this moment as patient appears to be stable, there is no extravasation and in the case of the bile leak LFTs are normal. We will continue to trend LFTs to ensure stability. We might proceed with HIDA scan tomorrow if patient clinical status changes. Dr. Arvizu will evaluate the patient in the morning to provide further recommendations regarding treatment. -Admit to general surgery -Pain control -IV fluids -Trend labs -Cardiac monitoring Attestations 2 Medical Necessity Statement*: Patient will require 24 to 48 hours of hospital stay for observation and management of hypotension in the setting of recent laparoscopic cholecystectomy. Coding Level of Care Code Acute Code for Chg Fwd Diagnoses Hx laparoscopic cholecystectomy Z90.49 Near syncope R55
[2024-08-18 22:20] LABS: Reflex Lactate Order REFLEX LACTIC ORDERD
[2024-08-18 22:29] LABS: Bilirubin Urine Negative (Negative); Blood Urine Negative (Negative); Glucose Urine UA Negative (Normal); Ketones Urine Negative (Negative); Leukocyte Esterase Urine Negative (Negative); Nitrate Urine Negative (Negative); Protein Urine 1+ (Negative); Urine Appearance Clear (CLEAR); Urine Color Yellow (Yellow)
[2024-08-18 22:42] LABS: Add Urine Culture? No; Add Urine Microscopic? YES; Hyaline Casts Urine 0-4 /lpf; Mucus Urine 2+ /hpf; RBC Urine 0-4 /hpf (0-2); Specific Gravity, Urine 1.035 (1.005-1.030)
[2024-08-18 22:52] LABS: Lactic Acid level (Lactate) 6.3 mmol/L (0.5-2.2)
[2024-08-19] VITALS (29 sets, daily range): BP systolic 103–141; BP diastolic 70–96; PULSE 80–115; RESP 15–24; TEMP 36.6–37; O2SAT 90–98; BMI 34.6
[2024-08-19] MEDS: morphine 4 mg/mL SDV 1 mL IVP ×2 (01:18→05:17)
[2024-08-19] MEDS: pantoprazole 40 mg SDV IVP (01:19)
[2024-08-19] MEDS: lactated ringers 1,000 ML 150 ML IV (01:20)
[2024-08-19 02:01] LABS: Basophils % 0.1 %; Hematocrit 26.3 % (37-53); Lymphocytes % 6.3 %; Mean Corpuscular HGB Conc 33.5 g/dL (30-55); Mean Corpuscular Hemoglobin 30.7 pg (27-33); Mean Corpuscular Volume 91.6 fl (82-101); Mean Platelet Volume 8.7 fL (7.4-10.4); Monocytes # 0.9 10^3/uL (0.2-0.9); Monocytes % 5.3 %; Neutrophils # 14.48 10^3/uL (1.8-7.7); Neutrophils % 87.5 %; Nucleated Red Blood Cells % 0 %; Platelet Count 273 10^3/cmm (157-399); Red Blood Count 2.87 10^6/uL (3.85-5.65); Red Cell Distribution Width 12.9 % (12.1-15.1); White Blood Count 16.55 10^3/uL (3.29-11.43)
[2024-08-19 02:23] LABS: Alanine Aminotransferase 24 U/L (0-41); Albumin Level 3.4 g/dL (3.5-5.2); Alkaline Phosphatase 54 U/L (40-130); Anion Gap 16.7 (5-19); Aspartate Amino Transferase 22 U/L (0-40); Blood Urea Nitrogen 16 mg/dL (6-20); Calcium 7.2 mg/dL (8.5-10.5); Carbon Dioxide 19 mmol/L (22-29); Chloride 104 mmol/L (98-107); Creatinine Clr Calc Pharmacy 115.5833; Estmated Average Glucose 105; Globulin 1.9 g/dL (1.3-4.6); Glomerular Filtration Rate 80.8 mL/min (90-130); Glucose 163 mg/dL (65-115); Hemoglobin A1C 5.3 % (4.0-6.0); Magnesium 1.6 mg/dL (1.7-2.3); Osmolality Calculated 285 mOsm/kg (285-295); Potassium 4.7 mmol/L (3.5-5.1); Sodium 135 mmol/L (136-145); Total Bilirubin 0.3 mg/dL (0.15-1.2); Total Protein 5.3 g/dL (6.6-8.7)
[2024-08-19 02:24] LABS: Phosphorus 3.8 mg/dL (2.5-4.5)
[2024-08-19 02:27] LABS: Lactic Sepsis W/Reflex 4.2 mmol/L (0.5-2.2)
[2024-08-19 03:45] LABS: Reflex Lactate Order REFLEX LACTIC ORDERD
[2024-08-19] MEDS: oxyCODONE 5 mg IR Tab/Cap PO (03:48)
[2024-08-19 05:21] LABS: Lactic Acid level (Lactate) 3.7 mmol/L (0.5-2.2)
[2024-08-19] MEDS: lactated ringers 1,000 ML 999 ML IV (05:55)
--- NOTE | 2024-08-19 08:21 | P.PN_ITS ---
Subjective 2 Subjective: Patient feeling better Pain under control Abdomen soft Vitals/I&O/Wt Last Vital Signs Temp 97.8 F 08/19/24 07:00 Pulse 115 H 08/19/24 07:00 Resp 22 H 08/19/24 07:00 BP 135/93 08/19/24 07:00 Pulse Ox 92 08/19/24 07:00 O2 Del Method Room Air 08/19/24 07:00 08/18/24 08/19/24 08/19/24 22:59 06:59 14:59 Intake Total 5001.74 / 5001.74 1000 / 1000 Balance 5001.74 / 5001.74 1000 / 1000 Weight last 48 hrs Weight 241 lb 6.499 oz Weight 241 lb 6.499 oz Weight 225 lb Physical Exam 2 Narrative: Chest: Unlabored breathing room air. No lymphadenopathy. Heart: Regular rate and rhythm. Abdomen: Soft, appropriately tender, mildly distended. No masses or lymphadenopathy. Incisions clean dry and intact Data 08/19/24 01:43 08/19/24 01:43 Micro: Microbiology 08/18/24 22:25 Blood Culture - Preliminary Blood SPECIMEN COLLECTED 08/18/24 22:20 Blood Culture - Preliminary Blood SPECIMEN COLLECTED A&P Assessment and plan (1) Post-op pain: Plan 44-year-old male who presented for lightheadedness after lap katie. Suspect intravascular depletion given creatinine had doubled and lactate was 7 in the ER. Today creatinine back to 1 and lactate 3.7. LFTs within normal limits. CT scan showed small amount of fluid in the right upper quadrant as well as small amount of pneumoperitoneum compatible with expected postoperative changes. No evidence of bleeding. Advancing to regular diet. Patient can be discharged today if he tolerates a diet. Attestations 2 Medical Necessity Statement*: IV fluids Coding Level of Care Code 28595 Diagnoses Post-op pain G89.18 Time Spent (min) 30
[2024-08-19 08:34] LABS: Hematocrit 24.8 % (37-53)
--- NOTE | 2024-08-19 10:15 | PC.NURSE ---
Discharge instructions provided and discussed. Pt and verbalized understanding.
== END 2024-08-19 10:15 | disposition home or self-care (01) ==
LOC: ER 21:50 → ICU 23:13
PROVIDERS: Emergency Medicine; Admitting Provider Surgery; Emergency Provider Emergency Medicine; PCP Internal Medicine; Visit Provider Surgery
DX: G89.18 Other acute postprocedural pain (principal); R55 Syncope and collapse; Z98.890 Other specified postprocedural states; Z90.49 Acquired absence of other specified parts of digestive tract; R00.0 Tachycardia, unspecified; I95.9 Hypotension, unspecified; I10 Essential (primary) hypertension; E66.9 Obesity, unspecified; Z68.34 Body mass index [BMI] 34.0-34.9, adult; F17.220 Nicotine dependence, chewing tobacco, uncomplicated
CPT/HCPCS: 36415; 71045; 74177; 80048; 80053; 80076; 81001; 83036; 83605; 83735; 84100; 85014; 85018; 85025; 86850; 86900; 87040; 93005; 96374; 96376; 99285; G0378; J2270; J2470; J7030; J7120

== ENCOUNTER → 2025-10-04 13:22 | Outpatient (BNVA) | payer OTHER, SELFPAY | PROVIDERS: PCP Electrodiagnostic Medicine; Visit Provider Physician Assistant | DX: G56.02 Carpal tunnel syndrome, left upper limb (principal); G56.22 Lesion of ulnar nerve, left upper limb | CPT/HCPCS: 73110 ==